=== PATIENT | male | born 1980 | race Caucasian/White ===

== ENCOUNTER 2024-02-11 16:29 | Emergency (ER) | payer BC, SELFPAY ==
[2024-02-11 16:32] VITALS: BP 125/85
--- NOTE | 2024-02-11 17:31 | ED.GENMED ---
History of Present Illness
General
Chief Complaint: Male Genito-Urinary Symptoms
Source: patient
Exam Limitations: none
Time Seen by Provider: 02/11/24 16:52
Nursing documentation reviewed up to this point in time: agreed with
History of Present Illness
History of Present Illness:
43-year-old male hypertensive diabetic a few days ago developed dysuria frequency burning with urination passing gravel 1 blood, no history of kidney stones having fever chills as high as 103, taking some Tylenol for generally fatigued, no flank
pain
Past History
Past History
ED Past Medical History: HTN and NIDDM
ED Past Surgical History: Other (Tonsils)
Social History
Tobacco: Non-smoker
Alcohol: None
Drug: None
Personal:
Living: with family
Employment: Employed
Family History
Family History: Diabetes
Review of Systems
Review of Systems
All Other Systems: Not applicable
Constitutional: Reports fever, fatigue and chills
EENT: Reports no symptoms
Respiratory: Reports no symptoms
Cardiac: Reports no symptoms
ABD/GI: Reports no symptoms
: Reports frequency, urgency, bleeding and dark urine; Denies flank pain
Musculoskeletal: Reports no symptoms
Skin: Reports no symptoms
Neurological: Reports no symptoms
Phy Exam
Physical Exam
Physical Exam:
Physical Exam
General: no apparent distress, not acutely ill
Neck: Lips are slightly dry
Heart: Regular
Lungs: no acute respiratory distress. clear bilaterally
Abdomen: Soft nontender no CVA tender
Neuro: alert and oriented. no focal neurological deficits
Skin: no rash
Psychiatric: well kept. interactive and cooperative
Extremities: no edema.
Course
Orders/Labs/Results
Orders:
Orders
02/11/24 17:30
CT Abd/pel Without Iv Or Oral Urgent
Comment:
Reason For Exam: fever uti
IV Insert/Care/Rem.- Treatment PRN
0.9% Sodium Chloride 1000 ml [Nss] 1,000 ml IV BOLUS
CefTRIAXone [Rocephin] 1,000 mg IV NOW STA
02/11/24 17:44
Sterile Water [Sterile Water For Injection] 10 ml .ROUTE .[facility]
02/11/24 18:04
Complete Blood Count/With Diff Urgent
Comprehensive Metabolic Panel Urgent
Urinalysis Reflex To Culture Urgent
Date Specimen was Collected: 02/11/24
Time Specimen was Collected: 17:32
Urine Microscopic Reflex Cult Urgent
Chlamydia/GC by PCR Urgent
MAGALIE Source: Urine
Specimen Description:
Source:: URINE
Date Specimen was Collected: 02/11/24
Time Specimen was Collected: 18:01
Urine Culture Urgent
MAGALIE Source: U
Specimen Description:
Date Specimen was Collected: 02/11/24
Time Specimen was Collected: 17:32
02/11/24 19:31
Acetaminophen [Tylenol] 1,000 mg PO NOW STA
Abnormal Lab Results
02/11/24
18:04
WBC 17.2 H 10^3/uL
(4.8-10.8)
MCV 78.5 L fL
(80.0-94.0)
MCH 26.7 L pg
(27.0-31.0)
Abs Immat Gran (auto) 0.1 H 10^3/uL
(0-0.05)
Absolute Neuts (auto) 14.0 H 10^3/uL
(1.4-6.5)
Absolute Monos (auto) 1.3 H 10^3/uL
(0.1-0.6)
Neutrophils % 81.5 H %
(42.2-75.2)
Lymphocytes % 10.1 L %
(20.5-51.1)
Creatinine 1.4 H mg/dL
(0.7-1.3)
Glucose 115 H mg/dl
(70-99)
Total Bilirubin 2.7 H mg/dl
(0.2-1.3)
Urine Ketones 2+ A
(Negative)
Ur Occult Blood Reflex 3+ A
(Negative)
Urine Nitrite (Reflex) Positive A
(Negative)
Urine Bilirubin 1+ A
(Negative)
Urine Urobilinogen 2+ A
(Neg - 1+)
Leukocyte Esterase Rfl 2+ A
(Negative)
Urine RBC 50-60 A /HPF
(0-2)
Urine WBC (Reflex) 30-40 A /HPF
(0-5)
Urine Bacteria (Reflex) Many A
(Negative)
Urine Albumin (Reflex) 3+ A
(Neg - Trace)
02/11/24 18:04
02/11/24 18:04
Vital Signs
Initial and Last Documented VS:
Initial Vital Signs
Temp Pulse Resp BP Pulse Ox
100 F 121 16 125/85 98
02/11/24 16:32 02/11/24 16:32 02/11/24 16:32 02/11/24 16:32 02/11/24 16:32
Last Documented Vital Signs
Temp Pulse Resp BP Pulse Ox
101.9 F H 98 18 138/70 99
02/11/24 19:45 02/11/24 19:45 02/11/24 19:45 02/11/24 19:45 02/11/24 19:45
MDM/Problems Addressed
Differential Diagnosis Includes:
UTI bacteremia kidney stone
MDM/Problems Addressed:
Dysuria frequency fever
Chronic conditions affecting care: DM and HTN
Acute Exacerbation and/or Progression of Chronic Illness: DM and HTN
*Radiology
Radiology exam reviewed: radiology read reviewed
*Pulse Oximetry
Patient hypoxic: no
*Critical Care Note
Total Time (30-74mins, 75-104mins- exclusive of procedures): Not Applicable
Data Reviewed
Source: patient
Update Note
Update Note:
Update 645 labs noted, urine noted culture pending CT noted report noted
Patient feeling much better after fluids and antibiotics he is wondering if he should stop his Mounjaro
Recommended he discuss this with his prescribing physician,
ED Attending Note
-
Portions of this chart may have been created with voice recognition software.� Occasional wrong word or��sound alike� substitutions may have occurred due to the inherent limitations of voice recognition software.
Discharge Plan
Departure
Patient Disposition: Home (Routine Discharge)
Date of Disposition: 02/11/24
Time of Disposition: 18:58
Patient with high blood pressure during this ER visit?: No
Condition: Good
Covid-19: Not Applicable
Discharge Problem:
Acute UTI
Instructions: Blood in the Urine (Hematuria), Adult (DC)
Prescriptions:
New
amoxicillin-pot clavulanate 875-125 mg tablet
1 tab PO BID Qty: 20 0RF
No Action
aspirin 81 mg Tablet,Delayed Release (Dr/Ec)
81 mg PO HS
lisinopril 10 mg Tablet
10 mg PO DAILY
fluticasone propion-salmeterol [Wixela Inhub] 100-50 mcg/dose Blister With Device
1 inh INHALATION R BID
albuterol sulfate 90 mcg/actuation Hfa Aerosol Inhaler
2 puff INHALATION Q4HPRN PRN (Reason: sob)
ketoconazole 2 % Cream
1 applic TOPICAL DAILYPRN PRN (Reason: feet rash)
rosuvastatin 10 mg Tablet
10 mg PO DAILY
polyethylene glycol 3350 [Miralax] 17 gram powder in packet
17 g PO DAILY Qty: 100 1RF
Referrals:
NONE,* [Active] -
Activity Restrictions/Additional Instructions:
Drink plenty of fluids, Tylenol as needed for fever body aches
Discuss your medications with your primary care provider
Take antibiotics as prescribed
Return to the ER if worsening symptoms
Interventions
Interventions:
*Risk Screen - Suicide Last Done: 02/11/24 16:32
*General Assessment Last Done: 02/11/24 16:32
*Neglect/Abuse Screening Last Done: 02/11/24 16:32
ED- Fall Risk Assessment Last Done: 02/11/24 19:45
*ED COVID-19 Vaccine History Last Done: 02/11/24 19:45
*Nursing Disposition Last Done: 02/11/24 19:45
ED-Male Genitourinary Assessment Last Done: 02/11/24 18:16
Discharge Date and Time
Discharge Date/Time: 02/11/24 19:48
Print Language: [place]
[2024-02-11] MEDS: NSS 1000 IV (18:02)
[2024-02-11] MEDS: ROCEPHIN 1000 MG IV (18:02)
[2024-02-11 18:13] LABS: % Basophils 0.3 % (0-2); % Immature Granulocytes 0.5 % (0-0.5); % Lymphocytes 10.1 % (20.5-51.1); % Monocytes 7.6 % (1.7-9.3); % Neutrophils 81.5 % (42.2-75.2); Absolute Basophils 0.1 10^3/uL (0-0.2); Absolute Immature Granulocytes 0.1 10^3/uL (0-0.05); Absolute Lymphocytes 1.7 10^3/uL (1.2-3.4); Absolute Monocytes 1.3 10^3/uL (0.1-0.6); Hematocrit 39.7 % (39.0-52.0); Hemoglobin 13.5 g/dL (13.0-18.0); Mean Corpuscular Hgb 26.7 pg (27.0-31.0); Mean Corpuscular Volume 78.5 fL (80.0-94.0); Mean Platelet Volume 10.1 fL (7.4-10.4); Nucleated Red Blood Cells % 0 % (-); Platelet Count 184 10^3/uL (130-400); Red Blood Cell Count 5.06 10^6/uL (4.70-6.10); Red Cell Dist. Width 14.3 % (11.5-14.5); White Blood Cell Count 17.2 10^3/uL (4.8-10.8)
[2024-02-11 18:14] LABS: Urine Albumin 3+ (Neg - Trace); Urine Bilirubin 1+ (Negative); Urine Character Very Cloudy (Clear); Urine Glucose Negative (Negative); Urine Ketone 2+ (Negative); Urine Leukocyte 2+ (Negative); Urine Nitrite Positive (Negative); Urine Occult Blood 3+ (Negative); Urine Specific Gravity 1.015 (<1.030); Urine Urobilinogen 2+ (Neg - 1+)
[2024-02-11 18:16] LABS: Urine Color Orange
[2024-02-11 18:25] VITALS: BMI 38.5
[2024-02-11 18:28] LABS: ALT (SGPT) 31 U/L (0-50); AST (SGOT) 24 U/L (17-59); Albumin 4.6 g/dl (3.5-5.0); Alkaline Phosphatase 69 U/L (38-126); Blood Urea Nitrogen 13 mg/dl (9-20); Calcium 9.6 mg/dl (8.4-10.2); Carbon Dioxide 27 mmol/L (22-30); Chloride 99 mmol/L (98-107); Estimated Creatinine Clearance 98 ml/min; Glucose 115 mg/dl (70-99); Potassium 4.1 mmol/L (3.5-5.1); Sodium 138 mmol/L (135-145); Total Bilirubin 2.7 mg/dl (0.2-1.3); Total Protein 7.3 g/dl (6.3-8.2); eGFR > 60.00
[2024-02-11 18:37] LABS: Urine Red Blood Cell 50-60 /HPF (0-2); Urine White Cell 30-40 /HPF (0-5)
[2024-02-11 18:38] LABS: Urine Bacteria Many (Negative)
[2024-02-11] MEDS: TYLENOL 1000 MG PO (19:34)
[2024-02-11 19:45] VITALS: BP 138/70
== END 2024-02-11 19:48 | disposition home or self-care (01) ==
LOC: EMR 16:29
PROVIDERS: EMERGENCY PHYSICIAN Emergency Medicine; FAMILY PHYSICIAN Family Medicine
DX: N39.0 Urinary tract infection, site not specified (principal); I10 Essential (primary) hypertension; E11.9 Type 2 diabetes mellitus without complications; Z83.3 Family history of diabetes mellitus
CPT/HCPCS: 99284; 96374; 96361; 74176; 80053; 81003; 81015; 85025; 87077; 87086; 87186; 87491; 87591